=== PATIENT | male | born 1990 | race African-American/Black ===

== ENCOUNTER 2018-03-11 18:55 | Emergency (ER) | payer SELFPAY ==
--- NOTE | 2018-03-11 20:29 | ER ---
Nurse's Notes [facility] Name: Francisco Jung Age: 27 yrs Sex: Male : 1990 Arrival Date: 03/11/2018 Time: 19:02 Bed Waiting Private MD: Diagnosis: Dental caries Presentation: 03/11 19:02 Presenting complaint: Patient states: toothache for past several days. States, "there's aa1 a big hole in there." Left bottom back molar noted to be broken. Transition of care: patient was not received from another setting of care. Onset of symptoms was March 07, 2018. Risk Assessment: Do you want to hurt yourself or someone else? Patient reports no desire to harm self or others. Initial Sepsis Screen: Does the patient meet any 2 criteria? No. Patient's initial sepsis screen is negative. Does the patient have a suspected source of infection? Yes: Skin breakdown/wound. Care prior to arrival: None. 19:02 Method Of Arrival: Ambulatory aa1 19:02 Acuity: CLEO 4 aa1 Triage Assessment: 19:03 General: Appears in no apparent distress. comfortable, Behavior is calm, cooperative, aa1 appropriate for age. Historical: - Allergies: 19:03 No Known Allergies; aa1 - Home Meds: 19:03 None [Active]; aa1 - PMHx: 19:03 None; aa1 - PSHx: 19:03 wesley leg sx; aa1 - Immunization history:: Flu vaccine is not up to date. - Social history:: Smoking status: Patient uses tobacco products, smokes one pack cigarettes per day. - Ebola Screening: : No symptoms or risks identified at this time. Screenin:50 Abuse screen: Denies threats or abuse. Denies injuries from another. Nutritional aa1 screening: No deficits noted. Tuberculosis screening: No symptoms or risk factors identified. Fall Risk None identified. Assessment: 20:50 General: Appears in no apparent distress. comfortable, Behavior is calm, cooperative, aa1 appropriate for age. Pain: Complains of pain in mouth Pain began 2-3 days ago. Neuro: Level of Consciousness is awake, alert, obeys commands, Oriented to person, place, time, situation. Respiratory: Airway is patent Respiratory effort is even, unlabored, Respiratory pattern is regular, symmetrical. GI: No signs and/or symptoms were reported involving the gastrointestinal system. : No signs and/or symptoms were reported regarding the genitourinary system. EENT: Poor dentition noted. broken tooth noted to left lower back molar. Derm: Skin is intact, is healthy with good turgor, Skin is pink, warm \\T\\ dry. Musculoskeletal: Circulation, motion, and sensation intact. Capillary refill < 3 seconds. 20:56 Reassessment: Patient appears in no apparent distress at this time. Patient is alert, aa1 oriented x 3, equal unlabored respirations, skin warm/dry/pink. Pt seen and treated in triage by . Discussed d/c \\T\\ f/u instructions with pt; denies questions or concerns at this time. Vital Signs: 19:03 BP 121 / 87; Pulse 73; Resp 18; Temp 98.6; Pulse Ox 98% on R/A; Weight 75.3 kg; Height aa1 5 ft. 11 in. (180.34 cm); Pain 8/10; 19:03 Body Mass Index 23.15 (75.30 kg, 180.34 cm) aa1 ED Course: 19:02 Patient arrived in ED. aa1 19:03 Triage completed. aa1 19:03 Arm band placed on right wrist. Patient placed in waiting room, Patient notified of aa1 wait time. 20:23 Ari Castañeda MD is Attending Physician. ps1 20:50 Hannah Gibbs, RN is Primary Nurse. aa1 20:50 Patient has correct armband on for positive identification. aa1 20:50 Assist provider with nerve block (dental) of left lower oral cavity. Set up for aa1 procedure. Performed by Ari Castañeda MD Patient tolerated well. Patient did not have IV access during this emergency room visit. Administered Medications: 20:55 Drug: Marcaine (0.5 %) 1 application Volume: 10 ml; Route: Infiltration; aa1 20:55 Drug: Lidocaine-Epinephrine -1%: (1:100,000) 1 application Volume: 20 ml; Route: aa1 Infiltration; Outcome: 20:29 Discharge ordered by . ps1 20:56 Discharged to home ambulatory. aa1 20:56 Condition: good 20:56 Discharge instructions given to patient, Instructed on discharge instructions, follow up and referral plans. medication usage, Demonstrated understanding of instructions, follow-up care, medications, Prescriptions given X 2. 20:57 Patient left the ED. aa1 Signatures: Hannah Gibbs RN RN aa1 Ari Castañeda MD MD ps1
--- NOTE | 2018-03-11 20:29 | EDPHYS ---
Physician Documentation [facility] Name: Francisco Jung Age: 27 yrs Sex: Male : 1990 Arrival Date: 03/11/2018 Time: 19:02 Bed Waiting Private MD: ED Physician Ari Castañeda HPI: 03/11 20:23 This 27 yrs old Black Male presents to ER via Ambulatory with complaints of Toothache. ps1 20:24 left 3rd molar is broke. Onset was 2 weeks ago. Pain is moderate to severe. No ps1 remitting factors. Worse with cold foods and air. Unable to get to dentist. Historical: - Allergies: 19:03 No Known Allergies; aa1 - Home Meds: 19:03 None [Active]; aa1 - PMHx: 19:03 None; aa1 - PSHx: 19:03 wesley leg sx; aa1 - Immunization history:: Flu vaccine is not up to date. - Social history:: Smoking status: Patient uses tobacco products, smokes one pack cigarettes per day. - Ebola Screening: : No symptoms or risks identified at this time. ROS: 20:24 Constitutional: Negative for fever, chills, and weight loss, Eyes: Negative for injury, ps1 pain, redness, and discharge, ENT: Negative for injury, pain, and discharge, Cardiovascular: Negative for chest pain, palpitations, and edema, Respiratory: Negative for shortness of breath, cough, wheezing, and pleuritic chest pain, Abdomen/GI: Negative for abdominal pain, nausea, vomiting, diarrhea, and constipation, MS/Extremity: Negative for injury and deformity, Skin: Negative for injury, rash, and discoloration, Neuro: Negative for headache, weakness, numbness, tingling, and seizure. 20:24 ENT: Positive for dental pain. Exam: 20:24 Constitutional: This is a well developed, well nourished patient who is awake, alert, ps1 and in no acute distress. Head/Face: Normocephalic, atraumatic. Eyes: Pupils equal round and reactive to light, extra-ocular motions intact. Lids and lashes normal. Conjunctiva and sclera are non-icteric and not injected. Chest/axilla: Normal chest wall appearance and motion. Nontender with no deformity. No lesions are appreciated. Cardiovascular: Regular rate and rhythm. No gallops, murmurs, or rubs. Normal PMI, no JVD. No pulse deficits. Respiratory: Lungs have equal breath sounds bilaterally, clear to auscultation and percussion. No rales, rhonchi or wheezes noted. No increased work of breathing, no retractions or nasal flaring. Abdomen/GI: Soft, non-tender, with normal bowel sounds. No distension or tympany. No guarding or rebound. No evidence of tenderness throughout. Skin: Warm, dry with normal turgor. Normal color with no rashes, no lesions, and no evidence of cellulitis. 20:24 ENT: Mouth: Dental exam: dental caries, fractured teeth are noted, specifically the lower left third molar (#17). Vital Signs: 19:03 BP 121 / 87; Pulse 73; Resp 18; Temp 98.6; Pulse Ox 98% on R/A; Weight 75.3 kg; Height aa1 5 ft. 11 in. (180.34 cm); Pain 8/10; 19:03 Body Mass Index 23.15 (75.30 kg, 180.34 cm) aa1 Procedures: 20:24 Nerve block: (dental) of left inferior alveolar nerve, Medication: Lidocaine 1% with ps1 epinephrine, Marcaine 0.5%, Amount: 2 mls were injected, Effect: the patient's symptoms are improved, markedly, Set up for procedure. Performed by Ari Castañeda MD Patient tolerated well. MDM: 20:24 Data reviewed: vital signs, nurses notes. Response to treatment: the patient's symptoms ps1 have resolved after treatment. ED course: home with chlorhexidine, clindamycin, and to get cavit from pharmacy and place in tooth. Follow up with dentist. . 20:29 Patient medically screened. ps1 Administered Medications: 20:55 Drug: Marcaine (0.5 %) 1 application Volume: 10 ml; Route: Infiltration; aa1 20:55 Drug: Lidocaine-Epinephrine -1%: (1:100,000) 1 application Volume: 20 ml; Route: aa1 Infiltration; Disposition: 03/11/18 20:29 Discharged to Home. Impression: Dental caries. - Condition is Stable. - Discharge Instructions: Dental Caries, Adult. - Prescriptions for chlorhexidine gluconate 0.12 % Mucous Membrane mouthwash - place 15 milliliter by MUCOUS MEMBRANE route 2 times per day for 14 days after brushing teeth, swish in mouth for 30 seconds then spit out; 300 milliliter. Clindamycin HCl 300 mg Oral Capsule - take 1 capsule by ORAL route every 6 hours for 10 days; 40 capsule. - Medication Reconciliation Form, Thank You Letter, Antibiotic Education, Prescription Opioid Use form. - Follow up: Private Physician; When: As needed; Reason: Continuance of care. Follow up: Emergency Department; When: As needed; Reason: Fever > 102 F, Worsening of condition. - Problem is an ongoing problem. - Symptoms are unchanged. Signatures: Hannah Gibbs RN RN aa1 Ari Castañeda MD MD ps1 Corrections: (The following items were deleted from the chart) 20:56 20:29 03/11/2018 20:29 Discharged to Home. Impression: Dental caries. Condition is aa1 Stable. Forms are Medication Reconciliation Form, Thank You Letter, Antibiotic Education, Prescription Opioid Use. Follow up: Private Physician; When: As needed; Reason: Continuance of care. Follow up: Emergency Department; When: As needed; Reason: Fever > 102 F, Worsening of condition. Problem is an ongoing problem. Symptoms are unchanged. ps1
[2018-03-11] MEDS ORDERED: BUPIVACAINE 0.5% PF 10 ML VIAL ONE (20:42)
[2018-03-11] MEDS ORDERED: LIDOCAINE 1% W/EPI 1:100,000 MDV 50 ML VIAL ONE (20:42)
== END 2018-03-11 20:57 | disposition home or self-care (01) ==
LOC: ER 18:55
DX: K02.9 Dental caries, unspecified (principal); F17.210 Nicotine dependence, cigarettes, uncomplicated
CPT/HCPCS: 99283

== ENCOUNTER 2023-07-18 18:23 | Emergency (ER) | payer OTHER ==
--- OUTSIDE RECORDS SUMMARY | 2023-07-18 18:26 | XMS REPORT | Continuity of Care Document ---
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 ambulating with no difficulty, was in no acute cardiorespiratory distress and no acute neurological changes noted. I discussed physical examination and diagnostic test results with patient including need for follow-up evaluation. I encouraged return to the nearest ED if symptoms change or worsens. Patient verbalizes understanding and states intention to ensure follow-up as advised. You Ramirez 03/10/22 0439:Patient Discharge Departure Discharge/Care PlanReferralsResource Referral: [facility] Address: [address] [place] [address] Supervising Physician Note MidLv Saw Pt AloneI have reviewed the PA/DELIVERY TABLE OPERATOR's note and plan of care. I was available for consultation as needed at all times during the patient's visit in the emergency department. I agree with the clinical impression, plan and disposition. at 0318 at 0439RPT #:[id number] OF REPORTEDEmergency department [id number] ilable for patient [id number] HCAWU
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
[2023-07-18 20:45] VITALS: BP 139/96; TEMP 98; O2SAT 98
== END 2023-07-18 19:17 | disposition home or self-care (01) ==
LOC: ER 18:23
DX: R51.9 Headache, unspecified (principal); V49.59XA Passenger injured in collision with other motor vehicles in traffic accident, initial encounter; M54.9 Dorsalgia, unspecified
CPT/HCPCS: 70450; 72125; 99283